=== PATIENT | male | born 1960 | race Hispanic/Latino ===

== ENCOUNTER → 2019-09-09 | Day surgery (SDC) | payer BC ==
[~2019-09-09] MED LIST: ACETAMINOPHEN 1000 MG/100 ML IV ONE; BUPIVACAINE HCL 0.5% INJ 30 ML VIAL INJ ONE; CEFAZOLIN SOD 1 GM/NS 50ML 50 ML IV ONE; DEXAMETHASONE SOD PHOS INJ 4 MG/ML VIAL ONE; FENTANYL CITRATE/PF 100MCG/2 ML INJ ONE; KETOROLAC TROMETHAMINE 30 MG/ML VIAL ONE; LIDOCAINE HCL 2% LOCAL INJ 5 ML SDV VIAL INJ ONE; MIDAZOLAM HCL 2 MG/2 ML VIAL ONE; ONDANSETRON HCL INJ 2MG/ML 2ML 2 MG/ML VIAL ONE; PROPOFOL IV EMULSION 10 MG/ML 20 ML VIAL ONE; SEVOFLURANE INHAL SOLN 250 ML PEN BTL ONE
[2019-09-09 08:30] VITALS: BP 122/70
--- NOTE | 2019-09-11 12:00 | Operative Report ---
DATE OF PROCEDURE: 09/09/2019 SURGEON: Bobbi Cordova DPM PREOPERATIVE DIAGNOSES: Right plantar fasciitis, right heel spur. POSTOPERATIVE DIAGNOSIS: Right plantar fasciitis, right heel spur. PLANNED PROCEDURE: Right corticosteroid injection of right heel spur. MONOTYPIST: None. ANESTHESIA: General with a postoperative block consisting of 10 mL of 0.5% Marcaine plain mixed with 1 mL of dexamethasone phosphate. HEMOSTASIS: Pneumatic thigh tourniquet set at 350 mmHg for a total time of approximately 15 minutes. ESTIMATED BLOOD LOSS: Less than 10 mL. PATHOLOGY: None. MATERIALS: One TLS drain, 2-0 Vicryl, 3-0 Vicryl, 4-0 Prolene. PROCEDURE NOTE: The patient was seen in the preoperative waiting room. The correct procedure and site were identified. The patient was brought to the operating room and placed on the operating table in the supine position. General anesthesia was initiated. At this time, a well-padded pneumatic tourniquet was placed about the patient's right thigh. The right foot ankle leg was scrubbed, prepped, and draped in the usual aseptic manner. The right foot, ankle, and leg was exsanguinated with an Esmarch bandage and a pneumatic thigh tourniquet was inflated to 350 mmHg for a total time of approximately 15 minutes. Attention was directed to the medial aspect of the patient's right heel, where a 4 cm linear incision was made directly at the plantar inferior medial border of the calcaneus. The incision was carried through subcutaneous tissue it from deeper underling structures. All vital neurovascular structures were identified, retracted medially and all bleeders were cauterized or ligated as deemed necessary. At this time, utilizing a curved [place] the dorsal plantar aspect of the plantar fascia was easily identified and cut approximately 1/3 to 1/2. The bone spur was identified, utilizing an osteotome and mallet, resected and passed off the back table. Utilizing a rongeur and rasped smooth. Anatomic alignment confirmed via intraoperative fluoroscopy. The wound was then copiously irrigated with sterile saline. Capsule and deep tissue were reapproximated with 3-0 Vicryl, subcutaneous tissue with 3-0 Vicryl, and the skin was closed using interlocking stitch with 4-0 Prolene. Next, utilizing manufacture protocol, a TLS drain was placed. The incision was dressed with Adaptic, 4x4s, Kerlix, Boubacar wrap, and a postop shoe. The patient was then taken to postoperative recovery room with vital signs stable and vascular status intact. The patient was monitored for short period of time before being sent home with the following written and oral instructions: 1. Keep the dressing clean, dry, and intact. 2. The patient is to remain nonweightbearing to the right lower extremity to avoid any excessive ambulation until being seen in the office. 3. The patient is given the office number and should contact us if any problems arise. ANGELICA Virk/INES /[id number]
== END | disposition home or self-care (01) ==
LOC: OR 05:09
PROVIDERS: ATTEND Podiatrist Foot & Ankle Surgery
DX: M77.32 Calcaneal spur, left foot (principal); M72.2 Plantar fascial fibromatosis; I10 Essential (primary) hypertension; Z01.810 Encounter for preprocedural cardiovascular examination; Z87.891 Personal history of nicotine dependence
CPT/HCPCS: 28119; 93005; J0131; J0690; J1100; J1885; J2001; J2250; J2405; J2704; J3010